=== PATIENT | male | born 1965 | race Caucasian/White ===

== ENCOUNTER 2016-09-15 08:04 | Day surgery (SDC) | payer OTHER ==
[~2016-09-15] VITALS: Ht 170.2 cm; Wt 85.1 kg
[2016-09-15 08:28] VITALS: Ht 170.2 cm; Wt 85.1 kg
[2016-09-15 08:58] VITALS: BP 117/59; PULSE 67; RESP 18
[2016-09-15] MEDS ORDERED: MIDAZOLAM 1 MG/ML 2 ML INJ ONE ×2 (09:24)
[2016-09-15] MEDS ORDERED: FENTAnyl 50 MCG/ML VIAL ONE (09:24)
[2016-09-15 09:52] VITALS: BP 119/68; PULSE 54; RESP 12
--- NOTE | 2016-09-15 10:15 | GILP ---
DATE OF PROCEDURE: 09/15/2016 PROCEDURE PERFORMED: Colonoscopy with polypectomy. INDICATION: A 51-year-old male undergoing this procedure for a screening colonoscopy. The patient has a strong family history of colon cancer, both father and grandfather had it. INFORMED CONSENT: The risk of the procedure, related and unrelated complications, anesthetic risks, alternatives discussed and informed consent was obtained. DESCRIPTION OF PROCEDURE: The patient was brought to the GI lab, sedated with Versed 3 mg, fentanyl 75 mg. After optimal sedation, digital examination done, which was normal. Scope was passed with much ease into rectum, advanced through sigmoid, descending, transverse colon all the way into cecum and finally into terminal ileum. Terminal ileum was normal up to 2 feet. Cecum was normal. While coming out, mucosa thoroughly inspected. There was a polyp identified, appeared to be sessile, 1.2 cm in diameter, successfully removed by cold snare technique. Pseudopedicle was created. Rest of t he colon appeared normal. One or two large-mouth diverticula seen. Retroversion done, no growth wa s seen. Scope was straightened out and removed with good patient tolerance. IMPRESSION: 1. A 1.2 cm polyp in the ascending colon close to the hepatic flexure, successfully removed by cold snare technique. 2. Diverticulosis. 3. Negative all the way into cecum. 4. Negative terminal ileum. 5. Clarity and cleanliness was good. PLAN: Review the histopathology of the polyp. Patient will need colonoscopy in the next 5 years. Dictated By: EMILEE BARRIOS/TEOFILO Conf#: [id number] DID#: [id number] CC: Dana Franks;*End*
== END 2016-09-15 14:23 | disposition home or self-care (01) ==
LOC: GIL 08:04
PROVIDERS: ATTEND Internal Medicine Gastroenterology
DX: Z12.11 Encounter for screening for malignant neoplasm of colon (principal); D12.2 Benign neoplasm of ascending colon; K57.30 Diverticulosis of large intestine without perforation or abscess without bleeding
CPT/HCPCS: 45385; 88305; J2250; J3010; Z7610